=== PATIENT | male | born 1975 | race Caucasian/White ===

== ENCOUNTER 2018-09-15 08:12 | Emergency (ER) | payer MEDICARE ==
[~2018-09-15] VITALS: Ht 165.1 cm; Wt 73.9 kg
[2018-09-15] MEDS ORDERED: DIAZEPAM 5 MG TABLET PO ONE (09:00)
[2018-09-15] MEDS ORDERED: OXYcodone/APAP 5/325MG TABLET PO ONE (09:00)
[2018-09-15] MEDS ORDERED: KETOROLAC 30 MG/1 ML IM ONE (09:00)
[2018-09-15] MEDS ORDERED: OXYcodone/APAP 5/325MG TABLET ONE (09:08)
[2018-09-15] MEDS ORDERED: KETOROLAC 30 MG/1 ML ONE (09:08)
[2018-09-15] MEDS ORDERED: DIAZEPAM 5 MG TABLET ONE (09:09)
--- NOTE | 2018-09-15 09:25 | NUR ---
Pt presents for LBP since last night after working out. CSM intact.
[2018-09-15 10:09] VITALS: BP 110/81
== END 2018-09-15 10:12 | disposition home or self-care (01) ==
LOC: ED 09:34
DX: S39.012A Strain of muscle, fascia and tendon of lower back, initial encounter (principal); X50.0XXA Overexertion from strenuous movement or load, initial encounter; Y93.89 Activity, other specified; Y92.39 Other specified sports and athletic area as the place of occurrence of the external cause; Y99.8 Other external cause status
CPT/HCPCS: 96372; 99283; J1885

== ENCOUNTER 2019-03-28 02:35 | Emergency (ER) | payer MEDICARE ==
[~2019-03-28] VITALS: Ht 162.6 cm; Wt 71.0 kg
[2019-03-28] MEDS ORDERED: ONDANSETRON 2MG/ML, 2ML ONE (02:56)
[2019-03-28] MEDS ORDERED: SODIUM CHLORIDE 0.9% 1,000ML IVBOLUS ONE (03:00)
[2019-03-28] MEDS ORDERED: ONDANSETRON 2MG/ML, 2ML IVPush ONE (03:00)
[2019-03-28 03:12] LABS: BASOPHILS # (AUTO) 0.01 x10^3/uL (0-0.1); BASOPHILS % (AUTO) 0 % (0-1); EOSINOPHILS % (AUTO) 0 % (1-7); LYMPHOCYTES # (AUTO) 0.91 x10^3/uL (1-3.4); LYMPHOCYTES % (AUTO) 11 % (22-44); MD NO; MEAN CORPUSCULAR HEMOGLOBIN 30.7 pg (27.5-34.5); MEAN CORPUSCULAR HGB CONC 33.4 g/dL (33.2-36.2); MEAN CORPUSCULAR VOLUME 92.1 fL (81-97); MEAN PLATELET VOLUME 8.4 fL (7.4-10.4); MONOCYTES # (AUTO) 0.23 x10^3/uL (0.2-0.8); MONOCYTES % (AUTO) 3 % (2-9); NEUTROPHILS # (AUTO) 7.31 x10^3/uL (1.8-6.8); NEUTROPHILS % (AUTO) 86 % (42-75); PLATELET COUNT 275 x10^3/uL (130-400); RED BLOOD COUNT 5.26 x10^6/uL (4.38-5.82); RED CELL DISTRIBUTION WIDTH 12.9 % (9.4-14.8)
--- NOTE | 2019-03-28 03:14 | NUR ---
PATIENT GIVEN WARM BLANKETS TO IMPROVE PATIENT COMFORT. PATIENT'S CALL LIGHT WITHIN REACH, BED IN LOWEST LOCKED POSITION. NO FURTHER NEEDS NOTED. PATIENT TOLERATED INTERVENTIONS WELL. WILL CONTINUE TO MONITOR.
[2019-03-28 03:23] LABS: ALBUMIN 4.1 g/dL (3.4-5.0); ANION GAP 10 mmol/L (5-15); CALCIUM 9.4 mg/dL (8.5-10.1); CHLORIDE 107 mmol/L (98-107)
[2019-03-28 03:27] LABS: ALANINE AMINOTRANSFERASE 27 U/L (12-78); ALKALINE PHOSPHATASE 95 U/L (45-117); BILIRUBIN,TOTAL 1.1 mg/dL (0.2-1.0); CREATININE 1.14 mg/dL (0.7-1.3); TOTAL PROTEIN 8.4 g/dL (6.4-8.2)
--- NOTE | 2019-03-28 03:30 | NUR ---
PATIENT GIVEN ADDITIONAL MEDICATIONS TO EASE N/V SYMPTOMS, WILL CONTINUE TO MONITOR.
[2019-03-28] MEDS ORDERED: PROMETHAZINE 25 MG/ML, 1ML ONE (03:34)
[2019-03-28] MEDS ORDERED: PROMETHAZINE 25 MG/ML, 1ML IM ONE (04:00)
--- NOTE | 2019-03-28 04:00 | NUR ---
PATIENT STATED THAT THE [place] MEDICATIONS DID NOT WORK. MD AWARE, WILL ADMINISTER ADDITIONAL MEDICATIONS TO ELEVIATE PATIENT'S SYMPTOMS.
[2019-03-28] MEDS ORDERED: DIPHENHYDRAMINE 50 MG/ML, 1ML ONE (04:04)
[2019-03-28] MEDS ORDERED: PROCHLORPERAZINE 5 MG/ML, 2ML ONE (04:04)
[2019-03-28] MEDS ORDERED: DIPHENHYDRAMINE 50 MG/ML, 1ML IVPush ONE (04:30)
[2019-03-28] MEDS ORDERED: PROCHLORPERAZINE 5 MG/ML, 2ML IVPush ONE (04:30)
--- NOTE | 2019-03-28 05:15 | NUR ---
PATIENT HAS BEEN CLEARED FOR DISCHARGE. NO NOTED ACUTE DISTRESS. PATIENT VERBALIZED UNDERSTANDING OF SELF CARE AND AT HOME CARE. PATIENT VERBALIZED UNDERSTANDING OF PERSCRIPTIONS.
[2019-03-28 05:16] VITALS: BP 120/76
== END 2019-03-28 05:18 | disposition home or self-care (01) ==
LOC: ED 05:07
DX: R11.14 Bilious vomiting (principal); Z90.49 Acquired absence of other specified parts of digestive tract
CPT/HCPCS: 36415; 80053; 83690; 85025; 96361; 96372; 96374; 96375; 99283; J0780; J1200; J2405; J2550; J7030

== ENCOUNTER 2019-06-21 04:51 | Emergency (ER) | payer MEDICARE ==
[~2019-06-21] VITALS: Ht 165.1 cm; Wt 70.0 kg
[2019-06-21] MEDS ORDERED: ONDANSETRON 2MG/ML, 2ML IVPush ONE (05:30)
[2019-06-21] MEDS ORDERED: METOCLOPRAMIDE 5 MG/ML, 2ML IVPush ONE (05:30)
[2019-06-21] MEDS ORDERED: MORPHINE SULFATE 4 MG/ML, 1ML IVPush PRN (05:30)
[2019-06-21] MEDS ORDERED: SODIUM CHLORIDE FLUSH 10ML SYR IVF ONE (05:30)
[2019-06-21] MEDS ORDERED: SODIUM CHLORIDE 0.9% 1,000ML IVBOLUS ONE (05:30)
--- NOTE | 2019-06-21 05:32 | NUR ---
THIS IS A 43 YO MALE COMING IN FOR "I HAVE CYCLIC VOMITING SYNDROME AND IT'S REALLY BAD THIS TIME". DIFFICULT TO GET INFORMATION FROM PATIENT TO DUE PANT-LIKE BREATHING AND MOANING. PATIENT PRODUCING MUCOUS-SPIT LIKE EMESIS WITH DRY HEAVES. PATIENT A&OX4, STATES "THIS EPISODE STARTED AT 230PM". NO OTHER MEDICAL HX NOTED. SPO2 MONITOR IN PLACE. 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
[2019-06-21] MEDS ORDERED: METOCLOPRAMIDE 5 MG/ML, 2ML ONE (05:43)
[2019-06-21] MEDS ORDERED: MORPHINE SULFATE 4 MG/ML, 1ML ONE (05:44)
[2019-06-21] MEDS ORDERED: ONDANSETRON 2MG/ML, 2ML ONE (05:44)
[2019-06-21] MEDS ORDERED: ZIPRASIDONE 20 MG INJ IM ONE ×2 (06:00→06:19)
[2019-06-21] MEDS ORDERED: LORazepam 2 MG/ML, 1ML IVPush ONE (06:00)
--- NOTE | 2019-06-21 06:00 | NUR ---
PATIENT MEDICATED PER EMAR, TOLERATED WELL.
[2019-06-21] MEDS ORDERED: LORazepam 2 MG/ML, 1ML ONE (06:04)
[2019-06-21 06:05] LABS: BASOPHILS # (AUTO) 0.02 x10^3/uL (0-0.1); BASOPHILS % (AUTO) 0 % (0-1); EOSINOPHILS # (AUTO) 0.04 x10^3/uL (0-0.4); EOSINOPHILS % (AUTO) 1 % (1-7); LYMPHOCYTES # (AUTO) 1.01 x10^3/uL (1-3.4); LYMPHOCYTES % (AUTO) 21 % (22-44); MD NO; MEAN CORPUSCULAR HEMOGLOBIN 29.9 pg (27.5-34.5); MEAN CORPUSCULAR HGB CONC 33.8 g/dL (33.2-36.2); MEAN CORPUSCULAR VOLUME 88.6 fL (81-97); MEAN PLATELET VOLUME 8.6 fL (7.4-10.4); MONOCYTES # (AUTO) 0.41 x10^3/uL (0.2-0.8); MONOCYTES % (AUTO) 8 % (2-9); NEUTROPHILS # (AUTO) 3.41 x10^3/uL (1.8-6.8); NEUTROPHILS % (AUTO) 70 % (42-75); PLATELET COUNT 251 x10^3/uL (130-400); RED BLOOD COUNT 4.93 x10^6/uL (4.38-5.82); RED CELL DISTRIBUTION WIDTH 14.1 % (9.4-14.8)
[2019-06-21 06:14] LABS: ANION GAP 12 mmol/L (5-15); CHLORIDE 109 mmol/L (98-107)
[2019-06-21 06:15] LABS: ALBUMIN 3.7 g/dL (3.4-5.0); CALCIUM 9.1 mg/dL (8.5-10.1); CREATININE 0.91 mg/dL (0.7-1.3)
--- NOTE | 2019-06-21 06:31 | NUR ---
PATIENT MEDICATED PER EMAR, TOLERATED WELL. PATIENT STATES PAIN AND NAUSEA IS GETTING BETTER AT THIS TIME
--- NOTE | 2019-06-21 06:48 | NUR ---
received report from chinedu martinez. pt laying in bed, no signs of distress, call light within reach.
--- NOTE | 2019-06-21 06:48 | NUR ---
REPORT GIVEN TO JOSE WINTERS. PLAN OF CARE DISCUSSED
[2019-06-21] MEDS ORDERED: POTASSIUM CHLORIDE 20 MEQ TAB.ER.PRT ONE (07:21)
[2019-06-21] MEDS ORDERED: POTASSIUM CHLORIDE 20 MEQ TAB.ER.PRT PO ONE (07:30)
[2019-06-21 08:00] VITALS: BP 114/69
--- NOTE | 2019-06-21 08:00 | NUR ---
PT DENIES NAUSEA AT THIS TIME, NO VOMITTING, NO QUESTIONS AT DISCHARGE.
== END 2019-06-21 08:06 | disposition home or self-care (01) ==
LOC: ED 05:05
DX: R11.2 Nausea with vomiting, unspecified (principal); R10.10 Upper abdominal pain, unspecified; Z90.49 Acquired absence of other specified parts of digestive tract
CPT/HCPCS: 36415; 80048; 82040; 83605; 83690; 85025; 96361; 96372; 96374; 96375; 99284; J2060; J2270; J2405; J2765; J3486; J7030

== ENCOUNTER 2019-06-23 05:54 | Emergency (ER) | payer MEDICARE ==
[2019-06-23] MEDS ORDERED: HALOPERIDOL 5 MG/ML IM ONE (06:30)
[2019-06-23] MEDS ORDERED: SODIUM CHLORIDE FLUSH 10ML SYR IVF ONE (06:30)
[2019-06-23] MEDS ORDERED: SODIUM CHLORIDE 0.9% 1,000ML IVBOLUS ONE ×2 (06:30→08:30)
[2019-06-23] MEDS ORDERED: DIPHENHYDRAMINE 50 MG/ML, 1ML IVPush ONE (06:30)
--- NOTE | 2019-06-23 06:50 | NUR ---
RECEIVED BEDSIDE REPORT FROM JOSE KING. PT HERE FOR N/V. PT HAS CYCLICAL VOMITING. MATCH MARKER BEDSIDE STARTING PIV.
[2019-06-23] MEDS ORDERED: HALOPERIDOL 5 MG/ML ONE (06:56)
[2019-06-23] MEDS ORDERED: DIPHENHYDRAMINE 50 MG/ML, 1ML ONE (06:56)
--- NOTE | 2019-06-23 07:06 | NUR ---
MEDICATIONS ADMINISTERED PER ORDER. PT PLACED ON CONT PULSE OX,NIBP, ELECTRICAL HIGH TENSION TESTER.
[2019-06-23] MEDS ORDERED: LORazepam 2 MG/ML, 1ML IVPush ONE (07:30)
[2019-06-23] MEDS ORDERED: LORazepam 2 MG/ML, 1ML ONE (07:34)
--- NOTE | 2019-06-23 07:37 | NUR ---
PT STATES HE WAS HERE SUNDAY AND DID NOT GET HIS RX FILLED. STATED "I HAD OTHER ZOFRAN AT HOME I TOOK. I DIDN'T GET THE OTHER RX FILLED. THERE WAS PEPCID ON THAT ONE WITH ZOFRAN."
--- NOTE | 2019-06-23 08:15 | NUR ---
PT MORE CALM. RESTING ON LUDWIG.
[2019-06-23] MEDS ORDERED: FAMOTIDINE 20 MG/2 ML IV ONE (08:30)
[2019-06-23] MEDS ORDERED: FAMOTIDINE 20 MG/2 ML ONE (08:37)
--- NOTE | 2019-06-23 08:42 | NUR ---
PT RESTING ON GURNEY. PT STATES HE FEELS BETTER. "I JUST HAVE A LITTLE OF NAUSEA LEFT AND A PIT IN MY STOMACH. IT'S NOT PAIN, JUST LINGERING."
--- NOTE | 2019-06-23 08:57 | NUR ---
BEDSIDE REPORT TO JOSE CARTER.
--- NOTE | 2019-06-23 09:02 | NUR ---
bedside report received from JOSE Holland. pt resting on gurney, resps even and unlabored. IVF infusing. per JOSE Holland, pt demeanor improved greatly since arrival.
[2019-06-23 09:31] VITALS: BP 103/63
== END 2019-06-23 10:59 | disposition home or self-care (01) ==
LOC: ED 08:37
DX: R11.2 Nausea with vomiting, unspecified (principal); Z90.49 Acquired absence of other specified parts of digestive tract
CPT/HCPCS: 96361; 96372; 96374; 96375; 99285; J1200; J1630; J2060; J3490; J7030

== ENCOUNTER 2019-07-14 03:50 | Emergency (ER) | payer MEDICARE ==
[~2019-07-14] VITALS: Ht 165.1 cm; Wt 60.0 kg
[2019-07-14] MEDS ORDERED: METO10TA82 PO (04:04)
[2019-07-14] MEDS ORDERED: ONDANSETRON 2MG/ML, 2ML ONE (04:11)
--- NOTE | 2019-07-14 04:16 | NUR ---
C/O NAUSEA AND VOMITING X2 HOURS, PT TOOK REGLAN AND BENTYL AT HOME BUT CONTINUES TO VOMIT.
[2019-07-14] MEDS ORDERED: PROCHLORPERAZINE 5 MG/ML, 2ML ONE (04:45)
--- NOTE | 2019-07-14 04:49 | NUR ---
ERP at bedside.
[2019-07-14] MEDS ORDERED: HALOPERIDOL 5 MG/ML IV ONE (05:00)
[2019-07-14] MEDS ORDERED: SODIUM CHLORIDE 0.9% 1,000ML IVBOLUS ONE ×2 (05:00→06:00)
[2019-07-14] MEDS ORDERED: SODIUM CHLORIDE FLUSH 10ML SYR IVF ONE (05:00)
[2019-07-14] MEDS ORDERED: HALOPERIDOL 5 MG/ML ONE (05:12)
--- NOTE | 2019-07-14 05:21 | NUR ---
Pt screaming and yelling he refused xray, pt became agitated and began banging on gurney and threw call light.
--- NOTE | 2019-07-14 05:25 | NUR ---
Jose RN: Advised patient more meds were ordered for him. Patient calmed; admin meds per mar. Patient resting in [facility].
[2019-07-14 05:27] LABS: BASOPHILS # (AUTO) 0.01 x10^3/uL (0-0.1); BASOPHILS % (AUTO) 0 % (0-1); EOSINOPHILS # (AUTO) 0.02 x10^3/uL (0-0.4); EOSINOPHILS % (AUTO) 0 % (1-7); LYMPHOCYTES # (AUTO) 1.35 x10^3/uL (1-3.4); LYMPHOCYTES % (AUTO) 20 % (22-44); MD NO; MEAN CORPUSCULAR HEMOGLOBIN 29.9 pg (27.5-34.5); MEAN CORPUSCULAR HGB CONC 33.6 g/dL (33.2-36.2); MEAN CORPUSCULAR VOLUME 88.9 fL (81-97); MEAN PLATELET VOLUME 8.1 fL (7.4-10.4); MONOCYTES # (AUTO) 0.14 x10^3/uL (0.2-0.8); MONOCYTES % (AUTO) 2 % (2-9); NEUTROPHILS % (AUTO) 77 % (42-75); PLATELET COUNT 304 x10^3/uL (130-400); RED BLOOD COUNT 5.09 x10^6/uL (4.38-5.82); RED CELL DISTRIBUTION WIDTH 14.1 % (9.4-14.8)
[2019-07-14] MEDS ORDERED: ONDANSETRON 2MG/ML, 2ML IVPush ONE (05:30)
[2019-07-14] MEDS ORDERED: PROCHLORPERAZINE 5 MG/ML, 2ML IVPush ONE (05:30)
[2019-07-14 05:36] LABS: ALANINE AMINOTRANSFERASE 16 U/L (12-78); ALBUMIN 3.5 g/dL (3.4-5.0); ANION GAP 14 mmol/L (5-15); CALCIUM 8.7 mg/dL (8.5-10.1); CHLORIDE 110 mmol/L (98-107)
[2019-07-14 05:38] LABS: ALKALINE PHOSPHATASE 97 U/L (45-117); BILIRUBIN,TOTAL 0.5 mg/dL (0.2-1.0); CREATININE 0.92 mg/dL (0.7-1.3); TOTAL PROTEIN 7.7 g/dL (6.4-8.2)
--- NOTE | 2019-07-14 05:47 | NUR ---
Call to xray pt willing to have xray taken. Second NS bolus started. VSS. Pt cooperative at this time.
[2019-07-14] MEDS ORDERED: LORazepam 2 MG/ML, 1ML ONE (06:09)
--- NOTE | 2019-07-14 06:13 | NUR ---
Medicated per MAR as ordered. Pt now resting on gurney, provided warm blanket. Safety precautions in place.
[2019-07-14] MEDS ORDERED: LORazepam 2 MG/ML, 1ML IVPush ONE (06:30)
--- NOTE | 2019-07-14 06:42 | NUR ---
Pt sleeping intermittently, denies nausea or vomiting at this time, updated ERP.
--- NOTE | 2019-07-14 06:55 | NUR ---
Report given to Ashleigh GARCIA.
--- NOTE | 2019-07-14 06:56 | NUR ---
received report from chinedu odell.
[2019-07-14 07:09] VITALS: BP 110/55
== END 2019-07-14 07:14 | disposition home or self-care (01) ==
LOC: ED 05:37
DX: R11.15 Cyclical vomiting syndrome unrelated to migraine (principal); R10.84 Generalized abdominal pain
CPT/HCPCS: 36415; 74021; 80053; 83690; 85025; 99284; J0780; J1630; J2060; J2405; J7030; 99283

== ENCOUNTER 2019-10-02 16:18 | Emergency (ER) | payer MEDICARE ==
[~2019-10-02] VITALS: Ht 165.1 cm; Wt 60.5 kg
[~2019-10-02 16:18] MED LIST: METO10TA82 PO
--- NOTE | 2019-10-02 16:58 | NUR ---
PT HERE WITH CYCLIC VOMITING WITH HX OF THE SAME "EVERY FEW MONTHS" PER PT. IV STARTED AND LABS DRAWN WAITING FOR MD ORDERS.
[2019-10-02] MEDS ORDERED: LORazepam 2 MG/ML, 1ML ONE (17:09)
[2019-10-02] MEDS ORDERED: ONDANSETRON 2MG/ML, 2ML ONE (17:10)
[2019-10-02] MEDS ORDERED: FAMOTIDINE 20 MG/2 ML ONE (17:11)
[2019-10-02] MEDS ORDERED: HALOPERIDOL 5 MG/ML ONE (17:17)
--- NOTE | 2019-10-02 17:23 | NUR ---
TASK RN: MEDS PER MAR, BLANKETS, VSS. CALL CORTEZ IN REACH.
[2019-10-02] MEDS ORDERED: FAMOTIDINE 20 MG/2 ML IVPush ONE (17:30)
[2019-10-02] MEDS ORDERED: SODIUM CHLORIDE FLUSH 10ML SYR IVF ONE (17:30)
[2019-10-02] MEDS ORDERED: HALOPERIDOL 5 MG/ML IV ONE (17:30)
[2019-10-02] MEDS ORDERED: SODIUM CHLORIDE 0.9% 1,000ML IVBOLUS ONE (17:30)
[2019-10-02] MEDS ORDERED: ONDANSETRON 2MG/ML, 2ML IVPush ONE (17:30)
[2019-10-02] MEDS ORDERED: LORazepam 2 MG/ML, 1ML IVPush ONE (17:30)
[2019-10-02 17:48] LABS: BASOPHILS # (AUTO) 0.03 x10^3/uL (0-0.1); BASOPHILS % (AUTO) 0 % (0-1); EOSINOPHILS # (AUTO) 0.09 x10^3/uL (0-0.4); EOSINOPHILS % (AUTO) 1 % (1-7); LYMPHOCYTES # (AUTO) 1.72 x10^3/uL (1-3.4); LYMPHOCYTES % (AUTO) 23 % (22-44); MD NO; MEAN CORPUSCULAR HEMOGLOBIN 29.5 pg (27.5-34.5); MEAN CORPUSCULAR HGB CONC 33.6 g/dL (33.2-36.2); MEAN CORPUSCULAR VOLUME 87.7 fL (81-97); MEAN PLATELET VOLUME 9.4 fL (7.4-10.4); MONOCYTES # (AUTO) 0.35 x10^3/uL (0.2-0.8); MONOCYTES % (AUTO) 5 % (2-9); NEUTROPHILS # (AUTO) 5.24 x10^3/uL (1.8-6.8); NEUTROPHILS % (AUTO) 71 % (42-75); PLATELET COUNT 299 x10^3/uL (130-400); RED BLOOD COUNT 5.36 x10^6/uL (4.38-5.82); RED CELL DISTRIBUTION WIDTH 13.7 % (9.4-14.8)
[2019-10-02 18:05] LABS: CHLORIDE 106 mmol/L (98-107)
--- NOTE | 2019-10-02 18:15 | NUR ---
PT RESTING IN NAD. PT MUCH MORE RELAXED AND TRYING TO REST. VSS. WAITING FOR LAB RESULTS.
[2019-10-02 18:16] LABS: ALANINE AMINOTRANSFERASE 20 U/L (12-78); ALKALINE PHOSPHATASE 111 U/L (45-117); ANION GAP 9 mmol/L (5-15); BILIRUBIN,TOTAL 1.1 mg/dL (0.2-1.0); CALCIUM 8.8 mg/dL (8.5-10.1); TOTAL PROTEIN 8.3 g/dL (6.4-8.2)
--- NOTE | 2019-10-02 18:21 | NUR ---
CHART UP FOR MD RECHECK.
[2019-10-02 18:22] VITALS: BP 114/76
== END 2019-10-02 18:51 | disposition home or self-care (01) ==
LOC: ED 18:45
DX: R11.2 Nausea with vomiting, unspecified (principal); R10.9 Unspecified abdominal pain; Z90.49 Acquired absence of other specified parts of digestive tract
CPT/HCPCS: 36415; 80053; 83690; 85025; 96361; 96374; 96375; 99284; J1630; J2060; J2405; J3490; J7030

== ENCOUNTER 2019-10-04 07:45 | Emergency (ER) | payer MEDICARE ==
[~2019-10-04] VITALS: Ht 165.1 cm; Wt 61.2 kg
[2019-10-04] MEDS ORDERED: FAMOTIDINE 20 MG/2 ML ONE (08:10)
[2019-10-04] MEDS ORDERED: HALOPERIDOL 5 MG/ML ONE (08:10)
[2019-10-04] MEDS ORDERED: ONDANSETRON 2MG/ML, 2ML ONE (08:10)
[2019-10-04] MEDS ORDERED: SODIUM CHLORIDE 0.9% 1,000ML IVBOLUS ONE (08:30)
[2019-10-04] MEDS ORDERED: HALOPERIDOL 5 MG/ML IV ONE (08:30)
[2019-10-04] MEDS ORDERED: FAMOTIDINE 20 MG/2 ML IV ONE (08:30)
[2019-10-04] MEDS ORDERED: ONDANSETRON 2MG/ML, 2ML IVPush ONE (08:30)
[2019-10-04] MEDS ORDERED: SODIUM CHLORIDE FLUSH 10ML SYR IVF ONE (08:30)
--- NOTE | 2019-10-04 08:40 | NUR ---
Pt medicated per mar. Patient thrashing about in bed with bed rails up. Patient able to sit still and cooperated for xray and IV start. Labs drawn.
[2019-10-04 08:44] LABS: BASOPHILS # (AUTO) 0.02 x10^3/uL (0-0.1); BASOPHILS % (AUTO) 0 % (0-1); EOSINOPHILS # (AUTO) 0.02 x10^3/uL (0-0.4); EOSINOPHILS % (AUTO) 0 % (1-7); LYMPHOCYTES # (AUTO) 1.16 x10^3/uL (1-3.4); LYMPHOCYTES % (AUTO) 14 % (22-44); MD NO; MEAN CORPUSCULAR HEMOGLOBIN 29.7 pg (27.5-34.5); MEAN CORPUSCULAR HGB CONC 33.5 g/dL (33.2-36.2); MEAN CORPUSCULAR VOLUME 88.7 fL (81-97); MEAN PLATELET VOLUME 8.5 fL (7.4-10.4); MONOCYTES # (AUTO) 0.37 x10^3/uL (0.2-0.8); MONOCYTES % (AUTO) 4 % (2-9); NEUTROPHILS # (AUTO) 6.89 x10^3/uL (1.8-6.8); NEUTROPHILS % (AUTO) 81 % (42-75); PLATELET COUNT 282 x10^3/uL (130-400); RED BLOOD COUNT 5.24 x10^6/uL (4.38-5.82); RED CELL DISTRIBUTION WIDTH 13.9 % (9.4-14.8)
[2019-10-04 08:45] LABS: ALANINE AMINOTRANSFERASE 17 U/L (12-78); ALBUMIN 3.9 g/dL (3.4-5.0); ANION GAP 8 mmol/L (5-15); CALCIUM 8.8 mg/dL (8.5-10.1); CHLORIDE 106 mmol/L (98-107); CREATININE 1.19 mg/dL (0.7-1.3)
[2019-10-04 08:48] LABS: ALKALINE PHOSPHATASE 99 U/L (45-117); BILIRUBIN,TOTAL 0.7 mg/dL (0.2-1.0); TOTAL PROTEIN 7.9 g/dL (6.4-8.2)
[2019-10-04] MEDS ORDERED: LORazepam 2 MG/ML, 1ML ONE (08:49)
[2019-10-04] MEDS ORDERED: LORazepam 2 MG/ML, 1ML IVPush ONE (09:00)
[2019-10-04 09:53] VITALS: BP 96/50
--- NOTE | 2019-10-04 09:54 | NUR ---
task RN note: pt given PO fluids for PO challenge, instructed to provide urine sample, supplies at bedside. all monitors in place, pt a&o, resps even and unlabored, nadn.
--- NOTE | 2019-10-04 09:59 | NUR ---
per MD Montes, no urine sample required prior to dc. primary RN notified.
== END 2019-10-04 10:06 | disposition home or self-care (01) ==
LOC: ED 08:40
DX: R11.2 Nausea with vomiting, unspecified (principal); R19.7 Diarrhea, unspecified; Z90.49 Acquired absence of other specified parts of digestive tract
CPT/HCPCS: 36415; 74021; 80053; 83690; 85025; 96361; 96374; 96375; 99284; J1630; J2060; J2405; J3490; J7030

== ENCOUNTER 2019-10-17 19:00 | Emergency (ER) | payer MEDICARE ==
[~2019-10-17] VITALS: Ht 165.1 cm; Wt 58.2 kg
[2019-10-17] MEDS ORDERED: SODIUM CHLORIDE FLUSH 10ML SYR IVF ONE (20:30)
[2019-10-17] MEDS ORDERED: SODIUM CHLORIDE 0.9% 1,000ML IVBOLUS ONE (20:30)
[2019-10-17] MEDS ORDERED: ONDANSETRON 2MG/ML, 2ML IVPush ONE (20:30)
[2019-10-17] MEDS ORDERED: FAMOTIDINE 20 MG/2 ML IV ONE (20:30)
[2019-10-17] MEDS ORDERED: LORazepam 2 MG/ML, 1ML IVPush ONE (20:30)
[2019-10-17] MEDS ORDERED: ONDANSETRON 2MG/ML, 2ML ONE (20:48)
[2019-10-17] MEDS ORDERED: FAMOTIDINE 20 MG/2 ML ONE (20:49)
[2019-10-17] MEDS ORDERED: LORazepam 2 MG/ML, 1ML ONE (20:49)
--- NOTE | 2019-10-17 21:00 | NUR ---
PT HERE FOR ABD AND CYCLIC VOMITING. PIV PLACED. PT MEDICATED AND FLUIDS RUNNING. WILL CONTINUE TO MONITOR
[2019-10-17 21:08] LABS: BASOPHILS # (AUTO) 0.02 x10^3/uL (0-0.1); BASOPHILS % (AUTO) 0 % (0-1); EOSINOPHILS # (AUTO) 0.03 x10^3/uL (0-0.4); EOSINOPHILS % (AUTO) 0 % (1-7); LYMPHOCYTES # (AUTO) 1.15 x10^3/uL (1-3.4); LYMPHOCYTES % (AUTO) 10 % (22-44); MD NO; MEAN CORPUSCULAR HEMOGLOBIN 29.9 pg (27.5-34.5); MEAN CORPUSCULAR HGB CONC 33.7 g/dL (33.2-36.2); MEAN CORPUSCULAR VOLUME 88.8 fL (81-97); MEAN PLATELET VOLUME 8.7 fL (7.4-10.4); MONOCYTES # (AUTO) 0.29 x10^3/uL (0.2-0.8); MONOCYTES % (AUTO) 3 % (2-9); NEUTROPHILS # (AUTO) 9.74 x10^3/uL (1.8-6.8); NEUTROPHILS % (AUTO) 87 % (42-75); PLATELET COUNT 276 x10^3/uL (130-400); RED BLOOD COUNT 5.34 x10^6/uL (4.38-5.82); RED CELL DISTRIBUTION WIDTH 13.8 % (9.4-14.8)
[2019-10-17 21:16] LABS: ALANINE AMINOTRANSFERASE 20 U/L (12-78); ALBUMIN 4.1 g/dL (3.4-5.0); ANION GAP 9 mmol/L (5-15); CALCIUM 9.6 mg/dL (8.5-10.1); CHLORIDE 110 mmol/L (98-107); CREATININE 1.16 mg/dL (0.7-1.3)
[2019-10-17 21:19] LABS: ALKALINE PHOSPHATASE 103 U/L (45-117); BILIRUBIN,TOTAL 0.6 mg/dL (0.2-1.0); TOTAL PROTEIN 8.2 g/dL (6.4-8.2)
[2019-10-17] MEDS ORDERED: HALOPERIDOL 5 MG/ML ONE (21:59)
[2019-10-17] MEDS ORDERED: PROMETHAZINE 25 MG/ML, 1ML ONE (21:59)
[2019-10-17] MEDS ORDERED: HALOPERIDOL 5 MG/ML IM ONE (22:00)
[2019-10-17] MEDS ORDERED: PROMETHAZINE 25 MG/ML, 1ML IM ONE (22:00)
--- NOTE | 2019-10-17 22:16 | NUR ---
PT REMEDICATED FOR PAIN. PT REQUESTING PAIN MEDICATION. AWARE. WAITING FOR ORDERS. VSS. CALL LIGHT IN REACH
[2019-10-17 22:24] VITALS: BP 129/81
== END 2019-10-17 23:34 | disposition home or self-care (01) ==
LOC: ED 21:37
DX: R11.15 Cyclical vomiting syndrome unrelated to migraine (principal); R11.2 Nausea with vomiting, unspecified
CPT/HCPCS: 36415; 80053; 83690; 85025; 96361; 96372; 96374; 96375; 99284; J1630; J2060; J2405; J2550; J3490; J7030

== ENCOUNTER 2019-12-06 20:49 | Emergency (ER) | payer MEDICARE ==
[~2019-12-06] VITALS: Ht 165.1 cm; Wt 65.0 kg
--- NOTE | 2019-12-06 21:00 | NUR ---
PT WHEELED FROM TRIAGE TO ROOM AT THIS TIME.
--- NOTE | 2019-12-06 21:02 | NUR ---
JARED LERMA, AT BS FOR PT HISTORY AND ASSESSMENT.
[2019-12-06] MEDS ORDERED: ONDANSETRON 2MG/ML, 2ML ONE (21:16)
[2019-12-06] MEDS ORDERED: LORazepam 2 MG/ML, 1ML ONE (21:16)
[2019-12-06] MEDS ORDERED: HALOPERIDOL 5 MG/ML ONE (21:16)
[2019-12-06] MEDS ORDERED: METOCLOPRAMIDE 5 MG/ML, 2ML ONE (21:17)
[2019-12-06] MEDS ORDERED: FAMOTIDINE 20 MG/2 ML ONE (21:17)
[2019-12-06 21:23] LABS: BASOPHILS # (AUTO) 0.04 x10^3/uL (0-0.1); BASOPHILS % (AUTO) 0 % (0-1); EOSINOPHILS # (AUTO) 0.01 x10^3/uL (0-0.4); EOSINOPHILS % (AUTO) 0 % (1-7); LYMPHOCYTES # (AUTO) 1.39 x10^3/uL (1-3.4); LYMPHOCYTES % (AUTO) 15 % (22-44); MD NO; MEAN CORPUSCULAR HEMOGLOBIN 29.6 pg (27.5-34.5); MEAN CORPUSCULAR HGB CONC 33.4 g/dL (33.2-36.2); MEAN CORPUSCULAR VOLUME 88.6 fL (81-97); MEAN PLATELET VOLUME 8.4 fL (7.4-10.4); MONOCYTES % (AUTO) 3 % (2-9); NEUTROPHILS # (AUTO) 7.28 x10^3/uL (1.8-6.8); NEUTROPHILS % (AUTO) 81 % (42-75); PLATELET COUNT 289 x10^3/uL (130-400); RED BLOOD COUNT 5.49 x10^6/uL (4.38-5.82); RED CELL DISTRIBUTION WIDTH 14.8 % (9.4-14.8)
--- NOTE | 2019-12-06 21:23 | NUR ---
PT MEDICATED PER MAR AT THIS TIME. PIV ACCESS ESTABLISHED WITH LABS COLLECTED AND TUBED TO LAB.
[2019-12-06] MEDS ORDERED: SODIUM CHLORIDE FLUSH 10ML SYR IVF ONE (21:30)
[2019-12-06] MEDS ORDERED: HALOPERIDOL 5 MG/ML IV ONE (21:30)
[2019-12-06] MEDS ORDERED: ONDANSETRON 2MG/ML, 2ML IVPush ONE (21:30)
[2019-12-06] MEDS ORDERED: METOCLOPRAMIDE 5 MG/ML, 2ML IVPush ONE (21:30)
[2019-12-06] MEDS ORDERED: LORazepam 2 MG/ML, 1ML IVPush ONE (21:30)
[2019-12-06] MEDS ORDERED: SODIUM CHLORIDE 0.9% 1,000ML IVBOLUS ONE (21:30)
[2019-12-06] MEDS ORDERED: FAMOTIDINE 20 MG/2 ML IVPush ONE (21:30)
[2019-12-06 21:34] LABS: ALANINE AMINOTRANSFERASE 17 U/L (12-78); ALBUMIN 3.6 g/dL (3.4-5.0); ANION GAP 10 mmol/L (5-15); CALCIUM 8.7 mg/dL (8.5-10.1); CHLORIDE 111 mmol/L (98-107); CREATININE 1.25 mg/dL (0.7-1.3)
[2019-12-06 21:36] LABS: ALKALINE PHOSPHATASE 92 U/L (45-117); TOTAL PROTEIN 7.3 g/dL (6.4-8.2)
[2019-12-06 22:07] VITALS: BP 89/53
--- NOTE | 2019-12-06 23:52 | NUR ---
Patient/Caregiver given discharge instructions and they have confirmed that they understand the instructions. Patient ambulatory with steady gait. PIV DC PRIOR TO PT LEAVING FACILITY
== END 2019-12-06 23:54 | disposition home or self-care (01) ==
LOC: ED 21:19
DX: R11.15 Cyclical vomiting syndrome unrelated to migraine (principal); R10.84 Generalized abdominal pain; R11.2 Nausea with vomiting, unspecified
CPT/HCPCS: 36415; 80053; 83690; 85025; 96361; 96374; 96375; 99284; J1630; J2060; J2405; J2765; J3490; J7030

== ENCOUNTER 2019-12-08 07:14 | Emergency (ER) | payer MEDICARE ==
[~2019-12-08] VITALS: Ht 165.1 cm; Wt 60.2 kg
[2019-12-08 07:15] VITALS: BP 110/81
[2019-12-08] MEDS ORDERED: DIAZEPAM 5 MG/ML, 2ML IM ONE (07:30)
[2019-12-08] MEDS ORDERED: PROMETHAZINE 25 MG/ML, 1ML IM ONE (07:30)
[2019-12-08] MEDS ORDERED: DIAZEPAM 5 MG/ML, 2ML ONE (07:33)
[2019-12-08] MEDS ORDERED: PROMETHAZINE 25 MG/ML, 1ML ONE (07:33)
[2019-12-08] MEDS ORDERED: MAALOX/HYOSCYAMINE/LIDOCAINE 45 ML BTL PO ONE (08:00)
[2019-12-08] MEDS ORDERED: MAALOX/HYOSCYAMINE/LIDOCAINE 45 ML BTL ONE (08:02)
[2019-12-08] MEDS ORDERED: HYDROmorphone 2 MG/ML, 1ML ONE (08:46)
[2019-12-08] MEDS ORDERED: HYDROmorphone 1 MG/ML, 1ML INJ IM ONE (09:00)
--- NOTE | 2019-12-08 09:17 | NUR ---
ASSUMED CARE FOR DISCHARGE ONLY Patient/Caregiver given discharge instructions and they have confirmed that they understand the instructions. Patient ambulatory with steady gait.
[2019-12-09] MEDS ORDERED: PHENERGAN RC (11:44)
[2019-12-09] MEDS ORDERED: ZOFRAN (11:44)
== END 2019-12-08 09:19 | disposition home or self-care (01) ==
LOC: ED 08:13
DX: R11.2 Nausea with vomiting, unspecified (principal); R19.7 Diarrhea, unspecified; R10.84 Generalized abdominal pain; R00.0 Tachycardia, unspecified; Z90.49 Acquired absence of other specified parts of digestive tract
CPT/HCPCS: 96372; 99284; J1170; J2550; J3360

== ENCOUNTER 2019-12-09 07:42 | Emergency (ER) | payer MEDICARE ==
[~2019-12-09] VITALS: Ht 165.1 cm; Wt 60.0 kg
--- NOTE | 2019-12-09 08:04 | NUR ---
"cyclic vomiting syndrome attack" ABD PAIN STARTING AT 0700 TODAY. N/V STARTING 6 TIMES TODAY. PT ON CONT AUDIO/VISUAL OPERATOR, SPO2 SENIOR BI DEVELOPER Q 30 MIN, SIDE RAILS UP X2, CALL LIGHT IN REACH.
[2019-12-09] MEDS ORDERED: HALOPERIDOL 5 MG/ML ONE (08:22)
[2019-12-09] MEDS ORDERED: PROCHLORPERAZINE 5 MG/ML, 2ML ONE (08:22)
[2019-12-09] MEDS ORDERED: MAALOX/HYOSCYAMINE/LIDOCAINE 45 ML BTL ONE (08:22)
[2019-12-09] MEDS ORDERED: PROCHLORPERAZINE 5 MG/ML, 2ML IVPush ONE (08:30)
[2019-12-09] MEDS ORDERED: SODIUM CHLORIDE FLUSH 10ML SYR IVF ONE (08:30)
[2019-12-09] MEDS ORDERED: SODIUM CHLORIDE 0.9% 1,000ML IVBOLUS ONE (08:30)
[2019-12-09] MEDS ORDERED: MAALOX/HYOSCYAMINE/LIDOCAINE 45 ML BTL PO ONE (08:30)
[2019-12-09] MEDS ORDERED: HALOPERIDOL 5 MG/ML IM ONE (08:30)
[2019-12-09 08:32] LABS: BASOPHILS # (AUTO) 0.05 x10^3/uL (0-0.1); BASOPHILS % (AUTO) 1 % (0-1); EOSINOPHILS # (AUTO) 0.27 x10^3/uL (0-0.4); EOSINOPHILS % (AUTO) 3 % (1-7); LYMPHOCYTES # (AUTO) 2.88 x10^3/uL (1-3.4); LYMPHOCYTES % (AUTO) 36 % (22-44); MD NO; MEAN CORPUSCULAR HEMOGLOBIN 29.5 pg (27.5-34.5); MEAN CORPUSCULAR HGB CONC 33.1 g/dL (33.2-36.2); MEAN CORPUSCULAR VOLUME 89.2 fL (81-97); MEAN PLATELET VOLUME 8.5 fL (7.4-10.4); MONOCYTES # (AUTO) 0.52 x10^3/uL (0.2-0.8); MONOCYTES % (AUTO) 7 % (2-9); NEUTROPHILS # (AUTO) 4.33 x10^3/uL (1.8-6.8); NEUTROPHILS % (AUTO) 54 % (42-75); PLATELET COUNT 313 x10^3/uL (130-400); RED BLOOD COUNT 5.28 x10^6/uL (4.38-5.82); RED CELL DISTRIBUTION WIDTH 14.3 % (9.4-14.8)
[2019-12-09 08:42] LABS: ALANINE AMINOTRANSFERASE 24 U/L (12-78); ALBUMIN 3.5 g/dL (3.4-5.0); ANION GAP 8 mmol/L (5-15); CHLORIDE 110 mmol/L (98-107); CREATININE 1.01 mg/dL (0.7-1.3)
[2019-12-09 08:44] LABS: ALKALINE PHOSPHATASE 101 U/L (45-117); BILIRUBIN,TOTAL 0.3 mg/dL (0.2-1.0); TOTAL PROTEIN 6.9 g/dL (6.4-8.2)
[2019-12-09] MEDS ORDERED: KETAMINE 10 MG/ML, 20ML IV ONE (09:00)
[2019-12-09] MEDS ORDERED: KETAMINE 10 MG/ML, 20ML ONE (09:04)
--- NOTE | 2019-12-09 09:55 | NUR ---
PT REPORT FROM JOSE RIGGINS; RECEIVED OPENED VIAL OF KETAMINE. PT CARE TO BE ASSUMED.
[2019-12-09] MEDS ORDERED: HYDROmorphone 1 MG/ML, 1ML INJ IV ONE (10:00)
[2019-12-09] MEDS ORDERED: ONDANSETRON ODT 8 MG PO ONE (10:00)
[2019-12-09] MEDS ORDERED: ONDANSETRON ODT 8 MG ONE (10:04)
--- NOTE | 2019-12-09 10:05 | NUR ---
DISCUSSED CURRENT MEDICATION ORDERS W/ JARED LANDRY. VO: HOLD DILAUDID FOR NOW; GIVE ZOFRAN. KETAMINE WAS GIVEN EARLIER. ZOFRAN NOW GIVEN. NS BOLUS ALMOST COMPLETED. PT C/O SEVERE NAUSEA. PT REPORTS HE HAS A PCP BUT NOT A GI SPECIALIST, SUPPOSEDLY HAS PLANS TO SCHEDULE AN APPOINTMENT.
--- NOTE | 2019-12-09 11:05 | NUR ---
VO FROM JARED LANDRY: MAY ADMINISTER DILAUDID.
[2019-12-09 11:29] VITALS: BP 118/74
[2019-12-09] MEDS ORDERED: HYDROmorphone 1 MG/ML, 1ML INJ ONE (11:34)
--- NOTE | 2019-12-09 11:35 | NUR ---
PT REPORTS MINIMAL RELIEF W/ ZOFRAN.
--- NOTE | 2019-12-09 11:40 | NUR ---
DILAUDID GIVEN PER EMAR
[2019-12-09] MEDS ORDERED: PHENERGAN RC (11:44)
[2019-12-09] MEDS ORDERED: ZOFRAN (11:44)
== END 2019-12-09 12:39 | disposition home or self-care (01) ==
LOC: ED 07:54
DX: R11.2 Nausea with vomiting, unspecified (principal); R10.84 Generalized abdominal pain; Z90.49 Acquired absence of other specified parts of digestive tract
CPT/HCPCS: 36415; 80053; 85025; 96361; 96372; 96374; 96375; 99285; J0780; J1170; J1630; J7030; Q0162

== ENCOUNTER 2020-04-08 15:58 | Emergency (ER) | payer MEDICARE ==
[~2020-04-08] VITALS: Ht 162.6 cm; Wt 61.0 kg
[~2020-04-08 15:58] MED LIST changes: +PHENERGAN RC; +ZOFRAN
[2020-04-08] MEDS ORDERED: ONDANSETRON ODT 8 MG ONE (16:06)
[2020-04-08] MEDS ORDERED: SODIUM CHLORIDE FLUSH 10ML SYR IVF ONE (16:30)
[2020-04-08] MEDS ORDERED: SODIUM CHLORIDE 0.9% 1,000ML IVBOLUS ONE (16:30)
[2020-04-08] MEDS ORDERED: FAMOTIDINE 20 MG/2 ML IV ONE (16:30)
[2020-04-08] MEDS ORDERED: MAALOX/HYOSCYAMINE/LIDOCAINE 45 ML BTL PO ONE (16:30)
[2020-04-08] MEDS ORDERED: ONDANSETRON ODT 8 MG PO ONE (16:30)
[2020-04-08 17:13] VITALS: BP 114/73
[2020-04-08] MEDS ORDERED: ZIPRASIDONE 20 MG INJ IM ONE (17:30)
--- NOTE | 2020-04-08 18:36 | NUR ---
CHICKEN FANCIER: PT KICKING AT DOORS, FOUL AT STAFF, EXCORTED OFF BY SECURITY
== END 2020-04-08 18:39 | disposition home or self-care (01) ==
LOC: ED 18:30
DX: R10.9 Unspecified abdominal pain (principal)
CPT/HCPCS: 74021; 93005; 99283; Q0162

== ENCOUNTER 2020-07-16 08:08 | Emergency (ER) | payer MEDICARE ==
[~2020-07-16] VITALS: Ht 165.1 cm; Wt 60.5 kg
--- NOTE | 2020-07-16 08:44 | NUR ---
First contact with pt. Pt reports hx of [facility], seen here 2 days ago for same. Pt reports N/V/abd cramping since 0300 this morning without relief from home meds. Pt placed in gown, positioned for comfort in bed, declines warm blanket offered. PIV inserted per order. Continuous oxygen and BP Monitors applied, all safety measures observed.
[2020-07-16] MEDS ORDERED: METOCLOPRAMIDE 5 MG/ML, 2ML ONE (08:51)
[2020-07-16] MEDS ORDERED: MAALOX/HYOSCYAMINE/LIDOCAINE 45 ML BTL ONE (08:51)
[2020-07-16] MEDS ORDERED: HYDROmorphone 1 MG/ML, 1ML INJ ONE (08:51)
--- NOTE | 2020-07-16 08:59 | NUR ---
Pt medicated per MAR. POC discussed. Pt denies other needs.
[2020-07-16] MEDS ORDERED: METOCLOPRAMIDE 5 MG/ML, 2ML IVPush ONE (09:00)
[2020-07-16] MEDS ORDERED: SODIUM CHLORIDE FLUSH 10ML SYR IVF ONE (09:00)
[2020-07-16] MEDS ORDERED: HYDROmorphone 1 MG/ML, 1ML INJ IV ONE (09:00)
[2020-07-16] MEDS ORDERED: LACTATED RINGERS 1,000 ML IV ONE (09:00)
[2020-07-16] MEDS ORDERED: MAALOX/HYOSCYAMINE/LIDOCAINE 45 ML BTL PO ONE (09:00)
--- NOTE | 2020-07-16 09:41 | NUR ---
Pt reports N/V/abd pain improved after medications. Pain rated 2/10. Pt provided ice chips per request, denies other needs.
[2020-07-16] MEDS ORDERED: PROM25SU35 PR (09:43)
[2020-07-16] MEDS ORDERED: ONDA4TAB13 SL (09:43)
[2020-07-16 10:41] VITALS: BP 96/67
--- NOTE | 2020-07-16 10:41 | NUR ---
Pt reports "I'm back to normal." Pt tolerating ice chips and PO fluids.
== END 2020-07-16 10:43 | disposition home or self-care (01) ==
LOC: ED 08:27
DX: G89.29 Other chronic pain (principal); R11.2 Nausea with vomiting, unspecified; E86.0 Dehydration; R10.9 Unspecified abdominal pain; Z90.49 Acquired absence of other specified parts of digestive tract
CPT/HCPCS: 96361; 96374; 96375; 99284; J1170; J2765; J7120

== ENCOUNTER 2020-07-29 14:38 | Emergency (ER) | payer MEDICARE ==
[~2020-07-29] VITALS: Ht 165.1 cm; Wt 59.4 kg
[~2020-07-29 14:38] MED LIST changes: +ONDA4TAB13 SL; +PROM25SU35 PR
[2020-07-29 15:18] LABS: BASOPHILS % (AUTO) 0 % (0-1); EOSINOPHILS % (AUTO) 1 % (1-7); LYMPHOCYTES % (AUTO) 16 % (22-44); MEAN CORPUSCULAR HEMOGLOBIN 30.1 pg (27.5-34.5); MEAN CORPUSCULAR HGB CONC 34.1 g/dL (33.2-36.2); MEAN PLATELET VOLUME 8.3 fL (7.4-10.4); MONOCYTES % (AUTO) 5 % (2-9); NEUTROPHILS % (AUTO) 78 % (42-75); PLATELET COUNT 327 x10^3/uL (130-400); RED BLOOD COUNT 4.91 x10^6/uL (4.38-5.82); RED CELL DISTRIBUTION WIDTH 13.6 % (9.4-14.8)
[2020-07-29 15:22] LABS: ALANINE AMINOTRANSFERASE 32 U/L (12-78); ALBUMIN 3.7 g/dL (3.4-5.0); ANION GAP 7 mmol/L (5-15); CALCIUM 10.2 mg/dL (8.5-10.1); CHLORIDE 108 mmol/L (98-107)
[2020-07-29 15:23] LABS: MD NO
[2020-07-29 15:25] LABS: ALKALINE PHOSPHATASE 77 U/L (45-117); BILIRUBIN,TOTAL 0.2 mg/dL (0.2-1.0); CREATININE 1.17 mg/dL (0.7-1.3); TOTAL PROTEIN 7.5 g/dL (6.4-8.2)
[2020-07-29] MEDS ORDERED: PROMETHAZINE 25 MG/ML, 1ML IM ONE (16:00)
[2020-07-29] MEDS ORDERED: FAMOTIDINE 20 MG/2 ML IVPush ONE (16:00)
[2020-07-29] MEDS ORDERED: SODIUM CHLORIDE FLUSH 10ML SYR IVF ONE (16:00)
[2020-07-29] MEDS ORDERED: PROMETHAZINE 25 MG/ML, 1ML ONE (16:08)
[2020-07-29] MEDS ORDERED: FAMOTIDINE 20 MG/2 ML ONE (16:08)
--- NOTE | 2020-07-29 16:20 | NUR ---
PIV PLACED, MEDS ADMIN PER JUN.
[2020-07-29 16:23] VITALS: BP 104/71
--- NOTE | 2020-07-29 16:56 | NUR ---
PT STATES HE IS ALL BETTER AFTER MEDS. PT READY FOR DC. ERMD NOTIFIED.
== END 2020-07-29 17:10 | disposition home or self-care (01) ==
LOC: ED 17:04
DX: R11.2 Nausea with vomiting, unspecified (principal); R10.84 Generalized abdominal pain; Z90.49 Acquired absence of other specified parts of digestive tract
CPT/HCPCS: 36415; 80053; 83690; 85025; 96372; 96374; 99284; J2550

== ENCOUNTER 2020-08-15 14:25 | Emergency (ER) | payer MEDICARE ==
[~2020-08-15] VITALS: Ht 165.1 cm; Wt 70.0 kg
--- NOTE | 2020-08-15 14:36 | NUR ---
PATIENT WHEELED BACK FROM TRIAGE WITH CHIEF C/O VOMITING. PER PATIENT HE HAS CYCLICAL VOMITING AND STARTED THROWING UP AT 0800 THIS MORNING, TOOK TWO 25 MG COMPAZINE SUPPOSITORIES PRIOR TO ARRIVAL. PATIENT IS MOANING IN BED, ONE EPISODE OF EMESIS. CONNECTED TO MONITORS, CALL LIGHT WITHIN REACH.
--- NOTE | 2020-08-15 14:36 | NUR ---
ERMD AT BEDSIDE FOR EVALUATION.
[2020-08-15] MEDS ORDERED: ONDANSETRON 2MG/ML, 2ML ONE (14:42)
[2020-08-15] MEDS ORDERED: HYDROmorphone 1 MG/ML, 1ML INJ ONE (14:42)
--- NOTE | 2020-08-15 14:49 | NUR ---
18 GAUGE IV STARTED LEFT FA, BLOOD COLLECTED AND SENT TO LAB. PATIENT MEDICATED PER eMAR.
--- NOTE | 2020-08-15 14:52 | NUR ---
REPORT GIVEN TO JOSE PARR FOR TRANSFER OF PATIENT CARE.
--- NOTE | 2020-08-15 14:53 | NUR ---
REPORT FROM ROSALIA GARCIA
[2020-08-15 14:59] LABS: BASOPHILS % (AUTO) 1 % (0-1); EOSINOPHILS % (AUTO) 3 % (1-7); LYMPHOCYTES % (AUTO) 28 % (22-44); MD NO; MEAN CORPUSCULAR HEMOGLOBIN 30.3 pg (27.5-34.5); MEAN CORPUSCULAR HGB CONC 34.3 g/dL (33.2-36.2); MEAN PLATELET VOLUME 8.3 fL (7.4-10.4); MONOCYTES % (AUTO) 8 % (2-9); NEUTROPHILS % (AUTO) 60 % (42-75); PLATELET COUNT 336 x10^3/uL (130-400); RED BLOOD COUNT 5.34 x10^6/uL (4.38-5.82); RED CELL DISTRIBUTION WIDTH 13.9 % (9.4-14.8)
[2020-08-15] MEDS ORDERED: SODIUM CHLORIDE 0.9% 1,000ML IVBOLUS ONE (15:00)
[2020-08-15] MEDS ORDERED: SODIUM CHLORIDE FLUSH 10ML SYR IVF ONE (15:00)
[2020-08-15] MEDS ORDERED: HYDROmorphone 1 MG/ML, 1ML INJ IV ONE (15:00)
[2020-08-15] MEDS ORDERED: SODIUM CHLORIDE 0.9% 1,000 ML IV ONE (15:00)
[2020-08-15] MEDS ORDERED: ONDANSETRON 2MG/ML, 2ML IVPush ONE (15:00)
--- NOTE | 2020-08-15 15:02 | NUR ---
PAT WANT MORE PAIN MEDS BEFORE CT EXAM
[2020-08-15 15:08] LABS: ALANINE AMINOTRANSFERASE 26 U/L (12-78); ANION GAP 8 mmol/L (5-15); CALCIUM 9.4 mg/dL (8.5-10.1); CHLORIDE 110 mmol/L (98-107); CREATININE 1.11 mg/dL (0.7-1.3)
[2020-08-15 15:11] LABS: ALKALINE PHOSPHATASE 89 U/L (45-117); BILIRUBIN,TOTAL 0.5 mg/dL (0.2-1.0); TOTAL PROTEIN 8.1 g/dL (6.4-8.2)
[2020-08-15] MEDS ORDERED: PROMETHAZINE 25 MG/ML, 1ML ONE (15:21)
[2020-08-15] MEDS ORDERED: PROMETHAZINE 25 MG/ML, 1ML IM ONE (15:30)
[2020-08-15] MEDS ORDERED: OMNIPAQUE 350 MG/ML, 100ML BOTTLE ONE (15:59)
[2020-08-15] MEDS ORDERED: MAALOX/HYOSCYAMINE/LIDOCAINE 45 ML BTL PO ONE (16:00)
[2020-08-15] MEDS ORDERED: KETAMINE 10 MG/ML, 20ML IV ONE ×2 (16:00→17:00)
--- NOTE | 2020-08-15 16:01 | NUR ---
PT FOUND GETTING OUT OF BED AND DRINKING WATER FROM THE SINK. PT REQUESTING EITHER KETAMINE, ATIVAN, REGLAN, GI COCKTAIL, OR BENTYL TO HELP WITH SYMPTOMS CONTROL.
[2020-08-15] MEDS ORDERED: MAALOX/HYOSCYAMINE/LIDOCAINE 45 ML BTL ONE (16:09)
[2020-08-15] MEDS ORDERED: KETAMINE 10 MG/ML, 20ML ONE ×2 (16:09→16:54)
--- NOTE | 2020-08-15 17:03 | NUR ---
PT IN GURNEY SITTING AND ROCKING, VERY TENSE. PT CLENCHING ARMS AND STOMACH. PT CLAIMS "NOTHING IS WORKING, MY STOMACH HURTS". PT YELLING FROM ROOM FOR MD. MD AT BEDSIDE AND PLACING ORDERS.
[2020-08-15 17:15] LABS: MICROSCOPIC NOT IND
--- NOTE | 2020-08-15 17:51 | NUR ---
PT SLEEPING AFTER LAST WET END HELPER. PT AWAKENS EASILY, MORE RELAXED, NO LONGER CLENCHING. PT STATES HE FEELS BETTER AND IS READY TO GO HOME. PT GIVEN DC INSTRUCTIONS, PT VERBALIZES UNDERSTANDING
[2020-08-15 17:52] VITALS: BP 106/51
== END 2020-08-15 17:54 | disposition home or self-care (01) ==
LOC: ED 17:38
DX: R11.2 Nausea with vomiting, unspecified (principal); R94.31 Abnormal electrocardiogram [ECG] [EKG]; R10.9 Unspecified abdominal pain; Z90.49 Acquired absence of other specified parts of digestive tract
CPT/HCPCS: 36415; 74177; 80053; 81003; 83690; 85025; 93005; 96361; 96372; 96374; 96375; 96376; 99285; J1170; J2405; J2550; J7030; Q9967

== ENCOUNTER 2020-10-26 08:05 | Emergency (ER) | payer MEDICARE ==
[~2020-10-26] VITALS: Ht 165.1 cm; Wt 63.1 kg
--- NOTE | 2020-10-26 08:20 | NUR ---
PT AMBULATORY TO ROOM FROM TRIAGE, PT CHANGED INTO GOWN, MONITORS IN PLACE. PT ANXIOUS, RESTLESS, AXOX4. PT C/O SICKLIC VOMITING SINCE 429 THIS AM, WITH PAIN IN ALL 4 QUADRANTS. PT STATES HE TOOK 8MG ZOFRAN, 25MG PHENERGRAN EMPLOYMENT INTERVIEWER. CALL LIGHT WITHIN REACH.
--- NOTE | 2020-10-26 08:26 | NUR ---
DR SANFORD AT BS FOR ED EVAL
[2020-10-26] MEDS ORDERED: METOCLOPRAMIDE 5 MG/ML, 2ML IVPush ONE (08:30)
[2020-10-26] MEDS ORDERED: HALOPERIDOL 5 MG/ML IV ONE (08:30)
--- NOTE | 2020-10-26 08:33 | NUR ---
PT REFUSING RADIOLOGY AT THIS TIME
[2020-10-26] MEDS ORDERED: HALOPERIDOL 5 MG/ML ONE (08:46)
[2020-10-26] MEDS ORDERED: METOCLOPRAMIDE 5 MG/ML, 2ML ONE (08:47)
[2020-10-26 08:55] LABS: BASOPHILS % (AUTO) 1 % (0-1); EOSINOPHILS % (AUTO) 1 % (1-7); LYMPHOCYTES % (AUTO) 12 % (22-44); MEAN CORPUSCULAR HEMOGLOBIN 29.5 pg (27.5-34.5); MEAN CORPUSCULAR HGB CONC 33.9 g/dL (33.2-36.2); MONOCYTES % (AUTO) 5 % (2-9); NEUTROPHILS % (AUTO) 81 % (42-75); PLATELET COUNT 255 x10^3/uL (130-400); RED BLOOD COUNT 5.34 x10^6/uL (4.38-5.82); RED CELL DISTRIBUTION WIDTH 13.7 % (9.4-14.8)
[2020-10-26] MEDS ORDERED: SODIUM CHLORIDE 0.9% 1,000ML IVBOLUS ONE (09:00)
--- NOTE | 2020-10-26 09:03 | NUR ---
PIV PLACED, LABS DRAWN. PT MEDCIATED PER EMAR. PT STATES HE IS ALLERGIC TO HALDOPERIDOL, MEDICATION NOT GIVEN TO PT.
[2020-10-26 09:07] LABS: ALANINE AMINOTRANSFERASE 28 U/L (12-78); ALBUMIN 3.8 g/dL (3.4-5.0); ANION GAP 6 mmol/L (5-15); CALCIUM 10.3 mg/dL (8.5-10.1); CHLORIDE 106 mmol/L (98-107); CREATININE 1.26 mg/dL (0.7-1.3)
[2020-10-26 09:09] LABS: ALKALINE PHOSPHATASE 88 U/L (45-117); BILIRUBIN,TOTAL 0.3 mg/dL (0.2-1.0)
[2020-10-26 09:10] VITALS: BP 89/46
[2020-10-26] MEDS ORDERED: SODIUM CHLORIDE FLUSH 10ML SYR IVF ONE (09:30)
--- NOTE | 2020-10-26 09:36 | NUR ---
PT AMBULATORY TO BR WITH UPRIGHT STEADY GAIT.
[2020-10-26] MEDS ORDERED: ZIPRASIDONE 20 MG INJ IM ONE (10:00)
--- NOTE | 2020-10-26 10:11 | NUR ---
Patient given discharge instructions and they have confirmed that they understand the instructions. Patient ambulatory with steady gait.
== END 2020-10-26 10:12 | disposition home or self-care (01) ==
LOC: ED 08:34
DX: K85.00 Idiopathic acute pancreatitis without necrosis or infection (principal); R11.15 Cyclical vomiting syndrome unrelated to migraine; R00.0 Tachycardia, unspecified; Z90.49 Acquired absence of other specified parts of digestive tract; Z88.8 Allergy status to other drugs, medicaments and biological substances
CPT/HCPCS: 36415; 80053; 83690; 85025; 93005; 96361; 96372; 96374; 96375; 99284; J1630; J2765; J3486; J7030